=== PATIENT | male | born 1935 | race Caucasian/White ===

== ENCOUNTER 2016-10-07 00:06 | Observation (INO) | payer MEDICARE ==
[2016-10-07] VITALS (16 sets, daily range): BP systolic 57–197; BP diastolic 41–99; PULSE 55–88; RESP 8–21; TEMP 97.5–98; O2SAT 92–100
[~2016-10-07] VITALS: Ht 182.9 cm; Wt 104.5 kg
[2016-10-07] MEDS ORDERED: SODIUM CHLOR 0.9% 1000 ML INJ 1,000 ML IV SCH (00:12)
[2016-10-07] MEDS ORDERED: NALOXONE HCL 2 MG/2 ML VIAL IV ONE (00:15)
[2016-10-07] MEDS ORDERED: SODIUM CHLORIDE 0.9% FLUSH 10 ML FLUSH IVF PRN (00:15)
[2016-10-07] MEDS ORDERED: FINA5TAB2 PO (00:21)
[2016-10-07] MEDS ORDERED: ATOR20TA15 PO (00:21)
[2016-10-07] MEDS ORDERED: VALS1TAB70 PO (00:21)
[2016-10-07] MEDS ORDERED: GABA300C5 PO (00:21)
[2016-10-07] MEDS ORDERED: TAMS0.4C4 PO (00:21)
[2016-10-07] MEDS ORDERED: HYDR25TA5 PO (00:21)
[2016-10-07] MEDS ORDERED: HYDR-3583 PO (00:21)
[2016-10-07 00:32] LABS: BLOOD GAS CARBOXYHEMOGLOBIN 0.9 % (0-4); BLOOD GAS HCO3 17 mmol/L (22-26); BLOOD GAS METHEMOGLOBIN 0.2 % (0-2); BLOOD GAS O2 HGB SATURATION 97 % (90-100); BLOOD GAS OXYGEN CONTENT 13.6 Vol % (12.0-20.0); BLOOD GAS PCO2 31 mmHg (38-42); BLOOD GAS PO2 106 mmHG (61-120); BLOOD GAS TOTAL HGB 9.8 G/DL (12.0-16.0); CRITICAL VALUE NO; TEMP CORR TO 98.6
[2016-10-07 00:33] LABS: DRAW SITE LT RADIAL; LITER FLOW 2 L/M; NUMBER OF ARTERIAL PUNCTURES 1; OXYGEN DEVICE NASAL CANNULA; STAT YES; ULNAR PULSE PRESENT
[2016-10-07 00:41] LABS: AUTOMATED NEUTROPHIL # 4.1 TH/MM3 (1.8-7.7); BASOPHIL % 0.4 % (0.0-2.0); EOSINOPHIL # 0.2 TH/MM3 (0-0.4); EOSINOPHIL % 1.9 % (0.0-4.0); HEMATOCRIT 32.3 % (39.0-51.0); HEMO FLAGS DIFF FINAL; LYMPH % 38.4 % (9.0-44.0); LYMPHOCYTE # 3.3 TH/MM3 (1.0-4.8); MEAN CELL VOLUME 89.8 FL (80.0-100.0); MEAN CORPUSCULAR HEMOGLOBIN 30.7 PG (27.0-34.0); MEAN CORPUSCULAR HGB CONC 34.2 % (32.0-36.0); MONO % 11.7 % (0.0-8.0); NEUT % 47.6 % (16.0-70.0); PLATELET COUNT 200 TH/MM3 (150-450); RED CELL DISTRIBUTION WIDTH 13.8 % (11.6-17.2); WHITE BLOOD COUNT 8.6 TH/MM3 (4.0-11.0)
[2016-10-07 00:54] LABS: AMPHETAMINE, URINE NEG (NEG); BARBITURATES, URINE NEG (NEG); COCAINE, URINE NEG (NEG)
--- NOTE | 2016-10-07 01:12 | RADRPT ---
EXAM DATE/TIME: 10/07/2016 00:32 [facility] COMPARISON: No previous studies available for comparison. INDICATIONS : Syncopal episode. MEDICAL HISTORY : None. SURGICAL HISTORY : None. ENCOUNTER: Initial ACUITY: 1 day PAIN SCORE: Non-responsive. LOCATION: Bilateral chest FINDINGS: A single view of the chest demonstrates the lungs to be symmetrically aerated without evidence of mas s, infiltrate or effusion. Mild dependent atelectasis. The cardiomediastinal contours are unremarkabl e. Osseous structures are intact. CONCLUSION: 1. No acute findings. Minimal dependent atelectasis. Jarrett Jolly MD on October 07, 2016 at 1:10 Board Certified Radiologist. This report was verified electronically.
[2016-10-07 01:18] LABS: ACETAMINOPHEN 4.2 MCG/ML (10.0-30.0); ALKALINE PHOSPHATASE 50 U/L (45-117); ALT (GPT) 27 U/L (12-78); ANION GAP 12 MEQ/L (5-15); AST (GOT) 41 U/L (15-37); BLOOD UREA NITROGEN 35 MG/DL (7-18); CHLORIDE 107 MEQ/L (98-107); CREATINE KINASE 442 U/L (39-308); GLOMERULAR FILTRATION RATE 32 ML/MIN (>89); POTASSIUM 4.3 MEQ/L (3.5-5.1); SODIUM (NA) 138 MEQ/L (136-145); TOTAL BILIRUBIN ADULT 0.2 MG/DL (0.2-1.0)
[2016-10-07 01:30] LABS: CKMB 6.5 NG/ML (0.5-3.6)
--- NOTE | 2016-10-07 01:44 | PD ---
HPI Chief Complaint: Altered Mental Status Time Seen by Provider: 00:12 Travel History International Travel<30 days: No Contact w/Intl Traveler<30days: No Traveled to known affect area: No History of Present Illness HPI The patient's 81 years old. He arrives by EMS. He was sitting on his couch watching TV with the family. They left for a minute and when they returned he had fallen to the floor. EMS was activated. EMS reports one chest compression was performed at the time of their arrival and the patient yelled out in pain. EMS reports the patient had a normal pulse on scene and normal respirations. Blood glucose was 112 heart rate was in the 60s and the blood pressure is 105/ 67. The oxygen saturation was 100% on nonrebreather. The blood glucose was 112. They report the patient had alcohol on breath and Lortab on scene. In the ER the patient is very sleepy. He was given Narcan shortly following arrival which seemed to have no effect. His blood pressure dropped to about 65/ 45 and IV fluids were started and the patient was placed in a Trendelenburg position. History limited to that provided by EMS given altered mentation upon arrival. He does have a history of stroke from approximately 6 months prior. He also has high cholesterol and hypertension. [facility] Past Medical History High Cholesterol: Yes Cerebrovascular Accident: Yes (march 2016) Diminished Hearing: No Hypertension: Yes Influenza Vaccination: No Social History Alcohol Use: Yes Tobacco Use: No Substance Use: No Allergies-Medications (Allergen,Severity, Reaction): Coded Allergies: No Known Allergies (Unverified , 10/07/16) Reported Meds & Prescriptions Reported Meds & Active Scripts Active Reported Valsartan 320 Mg Tab 320 Mg PO DAILY Atorvastatin (Atorvastatin Calcium) 20 Mg Tab 20 Mg PO DAILY Gabapentin 300 Mg Cap 300 Mg PO TID Finasteride 5 Mg Tab 5 Mg PO DAILY Do not crush. Hydrocodone-Acetaminophen 10-325 mg Tab 1 Tab PO BID PRN Tamsulosin (Tamsulosin HCl) 0.4 Mg Cap 0.4 Mg PO HS Hydrochlorothiazide 25 Mg Tab 25 Mg PO DAILY Review of Systems ROS Limitations: Clinical Condition, Altered Mental Status Except as stated in HPI: all other systems reviewed are Neg Physical Exam Narrative GENERAL: 81-year-old male well-nourished well-developed occasionally groans in response to noxious stimulus SKIN: Focused skin assessment warm/dry. HEAD: Atraumatic. Normocephalic. EYES: Pupils pinpoint with conjugate gaze. ENT: No nasal bleeding or discharge. Mucous membranes pink and moist. NECK: Trachea midline. No JVD. CARDIOVASCULAR: Regular rate and rhythm. No murmur appreciated. RESPIRATORY: No accessory muscle use. Clear to auscultation. Breath sounds equal bilaterally. GASTROINTESTINAL: Abdomen soft, non-tender, nondistended. Hepatic and splenic margins not palpable. MUSCULOSKELETAL: No obvious deformities. No clubbing. No cyanosis. No edema. NEUROLOGICAL: No focal neurologic deficit. PSYCHIATRIC: Unable to assess Data Data Last Documented VS Vital Signs Date Time Temp Pulse Resp B/P Pulse Ox O2 Delivery O2 Flow Rate FiO2 10/07/16 05:12 55 16 124/58 98 Room Air 10/07/16 01:39 2 10/07/16 00:12 97.5 VS reviewed Orders Electrocardiogram (10/07/16 00:12) Complete Blood Count With Diff (10/07/16 00:12) Comprehensive Metabolic Panel (10/07/16 00:12) Creatine Kinase (Cpk) (10/07/16 00:12) Troponin I (10/07/16 00:12) Lactic Acid Sepsis Protocol (10/07/16 00:12) Arterial Blood Gas (Abg) (10/07/16 00:12) Chest, Single Ap (10/07/16 00:12) Blood Glucose (10/07/16 00:12) Ecg Monitoring (10/07/16 00:12) Iv Access Insert/Monitor (10/07/16 00:12) Cath For Specimen (10/07/16 00:12) Oximetry (10/07/16 00:12) Oxygen Administration (10/07/16 00:12) Naloxone Inj (Narcan Inj) (10/07/16 00:15) Sodium Chloride 0.9% Flush (Ns Flush) (10/07/16 00:15) Sodium Chlor 0.9% 1000 Ml Inj (Ns 1000 M (10/07/16 00:12) Drug Screen, Random Urine (10/07/16 00:12) Alcohol (Ethanol) (10/07/16 00:12) Salicylates (Aspirin) (10/07/16 00:12) Tylenol (Acetaminophen) (10/07/16 00:12) CKMB (10/07/16 00:20) CKMB% (10/07/16 00:20) Naloxone Inj (Narcan Inj) (10/07/16 01:45) Sodium Chlor 0.9% 1000 Ml Inj (Ns 1000 M (10/07/16 01:45) Ct Brain W/O Iv Contrast(Rout) (10/07/16 01:54) Place In Observation (10/07/16 ) Vital Signs (Adult) Q4H (10/07/16 05:16) Deck Scaler / Telemetry RANDY.Q8H (10/07/16 05:16) Intake + Output RANDY.QSHIFT (10/07/16 05:16) Neuro Checks Q4H (10/07/16 05:16) Diet Heart Healthy (10/07/16 Breakfast) Sodium Chloride 0.9% Flush (Ns Flush) (10/07/16 05:30) Sodium Chloride 0.9% Flush (Ns Flush) (10/07/16 09:00) Echo 2d Comp W/Dopp(Routine) (10/07/16 ) Holter Monitor Recording (10/07/16 ) Eeg Study (10/07/16 ) Us Carotid Arteries Comp Bilat (10/07/16 ) Urinalysis - C+S If Indicated (10/07/16 05:20) Admit Order (Ed Use Only) (10/07/16 05:49) Labs Laboratory Tests Test 10/07/16 10/07/16 00:20 03:19 White Blood Count 8.6 TH/MM3 Red Blood Count 3.60 MIL/MM3 Hemoglobin 11.1 GM/DL Hematocrit 32.3 % Mean Corpuscular Volume 89.8 FL Mean Corpuscular Hemoglobin 30.7 PG Mean Corpuscular Hemoglobin 34.2 % Concent Red Cell Distribution Width 13.8 % Platelet Count 200 TH/MM3 Mean Platelet Volume 10.7 FL Neutrophils (%) (Auto) 47.6 % Lymphocytes (%) (Auto) 38.4 % Monocytes (%) (Auto) 11.7 % Eosinophils (%) (Auto) 1.9 % Basophils (%) (Auto) 0.4 % Neutrophils # (Auto) 4.1 TH/MM3 Lymphocytes # (Auto) 3.3 TH/MM3 Monocytes # (Auto) 1.0 TH/MM3 Eosinophils # (Auto) 0.2 TH/MM3 Basophils # (Auto) 0.0 TH/MM3 CBC Comment DIFF FINAL Differential Comment Urine Color LIGHT-YELLOW Urine Turbidity CLEAR Urine pH 5.0 Urine Specific [place] 1.010 Urine Protein NEG mg/dL Urine Glucose (UA) NEG mg/dL Urine Ketones NEG mg/dL Urine Occult Blood NEG Urine Nitrite NEG Urine Bilirubin NEG Urine Urobilinogen LESS THAN 2.0 MG/DL Urine Leukocyte Esterase NEG Urine RBC 1 /hpf Urine WBC 1 /hpf Urine Squamous Epithelial <1 /hpf Cells Urine Bacteria RARE /hpf Urine Mucus FEW /lpf Microscopic Urinalysis Comment CULT NOT INDICATED Blood Gas Puncture Site LT RADIAL Blood Gas Patient Temperature 98.6 Blood Gas HCO3 17 mmol/L Blood Gas Base Excess -8.0 mmol/L Blood Gas Oxygen Saturation 97 % Arterial Blood pH 7.35 Arterial Blood Partial 31 mmHg Pressure CO2 Arterial Blood Partial 106 mmHG Pressure O2 Arterial Blood Oxygen Content 13.6 Vol % Arterial Blood 0.9 % Carboxyhemoglobin Arterial Blood Methemoglobin 0.2 % Blood Gas Hemoglobin 9.8 G/DL Oxygen Delivery Device NASAL CANNULA Blood Gas Liter Flow 2 L/M Sodium Level 138 MEQ/L Potassium Level 4.3 MEQ/L Chloride Level 107 MEQ/L Carbon Dioxide Level 19.0 MEQ/L Anion Gap 12 MEQ/L Blood Urea Nitrogen 35 MG/DL Creatinine 2.03 MG/DL Estimat Glomerular Filtration 32 ML/MIN Rate Random Glucose 92 MG/DL Lactic Acid Level 3.1 mmol/L 2.6 mmol/L Calcium Level 8.5 MG/DL Total Bilirubin 0.2 MG/DL Aspartate Amino Transf 41 U/L (AST/SGOT) Alanine Aminotransferase 27 U/L (ALT/SGPT) Alkaline Phosphatase 50 U/L Total Creatine Kinase 442 U/L Creatine Kinase MB 6.5 NG/ML Creatine Kinase MB % 1.5 % Troponin I LESS THAN 0.02 NG/ML Total Protein 6.4 GM/DL Albumin 3.5 GM/DL Salicylates Level LESS THAN 1.7 MG/DL Urine Opiates Screen POS Acetaminophen Level 4.2 MCG/ML Urine Barbiturates Screen NEG Urine Amphetamines Screen NEG Urine Benzodiazepines Screen NEG Urine Cocaine Screen NEG Urine Cannabinoids Screen NEG Ethyl Alcohol Level 112 MG/DL [facility] Medical Decision Making Medical Screen Exam Complete: Yes Emergency Medical Condition: Yes Medical Record Reviewed: Yes Differential Diagnosis Syncope, arrhythmia, intracranial disease, electrolyte imbalance, anemia, etoh, polypharmacy Narrative Course CBC & BMP Diagram 10/07/16 00:20 7.35/ BE -18.0 abg pO2 106 on 2L NC EtOH 112 Urine toxicology opiates APAP 4.2 Salicylates < 1.7 EKst degree av block, st changes no considered ischemic, normal axis Last [address] 10/07/16 0154 Signed Impressions: Service Date/Time: September 04:18 - CONCLUSION: 1. Remote small infarct in the right parieto-occipital region. No acute intracranial abnormalities. Jarrett Jolly MD Chest X-Ray 10/07/16 0012 Signed Impressions: Service Date/Time: September 00:32 - CONCLUSION: 1. No acute findings. Minimal dependent atelectasis. Jarrett Jolly MD Carotid Artery Ultrasound 10/07/16 0000 Signed Impressions: Service Date/Time: September 08:25 - CONCLUSION: 1. Bilateral calcified atherosclerotic plaque which is more abundant on the right. A 50-69% % stenosis of the right ICA with less than 50%% stenosis of the left ICA. 2. Antegrade flow involving both vertebral arteries. 3. Irregular heartbeat noted. Jovani Diaz Jr., MD Initially patient minimally responsive to noxious stimulus. Intact gag reflex. Careful monitoring initially with volume resuscitation. ABG ordered. Pt was initially hypotensive in ER with BP about 70/50 and HR of 50s. IVF boluses x 2L. BP gradually increased to about 100-110/50-60 during ER course. Pt 's mentation gradually improved. He re-iterated no specific medical complaint upon reassessment x 3 prior to admission. Family and patient unaware of prior hx kidney disease. No similar prior episode. Admission for further monitoring and diagnostic evaluation. D/w Dr Zazueta. Critical Care Narrative Aggregate critical care time was 35 minutes. Time to perform other separately billable procedures was not included in the critical care time. My time did not include minutes spent treating any other patients simultaneously or on activities that did not directly contribute to the patient's treatment. The services I provided to this patient were to treat and/or prevent clinically significant deterioration that could result in: Cardiopulmonary arrest, multiorgan injury disability, I provided critical care services requiring my management, as noted below: Chart data review, documentation time, medication orders and management, vital sign assessments/reviewing monitor data, ordering and reviewing lab tests, ordering and interpreting/reviewing x-rays and diagnostic studies, care of the patient and discussion of the patient with the admitting physicians. Diagnosis Primary Impression: LOC (loss of consciousness) Additional Impressions: Hypotension Qualified Code: I95.9 - Hypotension, unspecified hypotension type Alcohol intoxication Qualified Code: F10.129 - Alcohol intoxication, with unspecified complication Altered mental status Qualified Code: R41.82 - Altered mental status, unspecified altered mental status type Admitting Information Admitting Physician Requests: it Jean Morgan MD Oct 07, 2016 01:44
[2016-10-07] MEDS ORDERED: NALOXONE HCL 2 MG/2 ML VIAL IV PUSH ONE (01:45)
[2016-10-07] MEDS ORDERED: SODIUM CHLOR 0.9% 1000 ML INJ 1,000 ML IV ONE (01:45)
[2016-10-07 02:30] LABS: LACTIC ACID GHOST NOT REPORTABLE
--- NOTE | 2016-10-07 04:58 | RADRPT ---
EXAM DATE/TIME: 10/07/2016 04:18 [facility] COMPARISON: No previous studies available for comparison. INDICATIONS : Altered mental status today. RADIATION DOSE: 56.35 CTDIvol (mGy) MEDICAL HISTORY : Stroke. Hypertension. SURGICAL HISTORY : None. ENCOUNTER: Initial ACUITY: 1 day PAIN SCALE: 0/10 LOCATION: Bilateral head TECHNIQUE: Multiple contiguous axial images were obtained of the head. Using automated exposure control and adj ustment of the mA and/or kV according to patient size, radiation dose was kept as low as reasonably a chievable to obtain optimal diagnostic quality images. FINDINGS: There is a remote infarct in the right parieto-occipital region. No acute mass, hemorrhage or midline shift. No recent infarct identified. No hydrocephalus. CONCLUSION: 1. Remote small infarct in the right parieto-occipital region. No acute intracranial abnormalities. Jarrett Jolly MD on October 07, 2016 at 4:54 Board Certified Radiologist. This report was verified electronically.
[2016-10-07] MEDS ORDERED: SODIUM CHLORIDE 0.9% FLUSH 10 ML FLUSH IV FLUSH PRN (05:30)
[2016-10-07 05:45] LABS: BACTERIA, URINE RARE /hpf; BLOOD, URINE NEG (NEG); COMMENT (UR) CULT NOT INDICATED; CULTURE IF INDICATED CULT NOT INDICATED; GLUCOSE,URINE NEG (NEG); KETONE, URINE NEG (NEG); MUCUS URINE FEW /lpf (OCC); NITRITE,URINE NEG (NEG); SQUAMOUS EPITHELIAL CELL URINE <1 /hpf (0-5); URINE COLOR LIGHT-YELLOW (YELLW/STRAW)
[2016-10-07] MEDS: SODIUM CHLORIDE 0.9% FLUSH 10 ML FLUSH IV FLUSH SCH ×2 (08:02→21:26)
[2016-10-07] MEDS: SODIUM CHLOR 0.9% 1000 ML INJ 1,000 ML IV SCH ×2 (08:02→21:53)
[2016-10-07 08:08] LABS: AUTOMATED NEUTROPHIL # 4.9 TH/MM3 (1.8-7.7); BASOPHIL % 0.4 % (0.0-2.0); EOSINOPHIL # 0.2 TH/MM3 (0-0.4); EOSINOPHIL % 2.2 % (0.0-4.0); HEMATOCRIT 32.6 % (39.0-51.0); HEMO FLAGS DIFF FINAL; LYMPH % 23.9 % (9.0-44.0); LYMPHOCYTE # 1.9 TH/MM3 (1.0-4.8); MEAN CORPUSCULAR HEMOGLOBIN 30.7 PG (27.0-34.0); MEAN CORPUSCULAR HGB CONC 34.8 % (32.0-36.0); MONO % 10.6 % (0.0-8.0); NEUT % 62.9 % (16.0-70.0); PLATELET COUNT 159 TH/MM3 (150-450); RED CELL DISTRIBUTION WIDTH 13.8 % (11.6-17.2); WHITE BLOOD COUNT 7.8 TH/MM3 (4.0-11.0)
[2016-10-07 08:28] LABS: ANION GAP 7 MEQ/L (5-15); AST (GOT) 26 U/L (15-37); BICARBONATE 20.8 MEQ/L (21.0-32.0); BLOOD UREA NITROGEN 32 MG/DL (7-18); CHLORIDE 112 MEQ/L (98-107); GLOMERULAR FILTRATION RATE 38 ML/MIN (>89); POTASSIUM 4.5 MEQ/L (3.5-5.1); SODIUM (NA) 140 MEQ/L (136-145)
[2016-10-07 08:32] LABS: ALKALINE PHOSPHATASE 50 U/L (45-117); ALT (GPT) 27 U/L (12-78); CREATINE KINASE 325 U/L (39-308); TOTAL BILIRUBIN ADULT 0.3 MG/DL (0.2-1.0)
[2016-10-07 08:47] LABS: CKMB 6.1 NG/ML (0.5-3.6)
[2016-10-07] MEDS ORDERED: ACETAMINOPHEN/HYDROcodone 325 MG/10 MG TAB PO PRN (09:45)
--- NOTE | 2016-10-07 10:00 | RADRPT ---
EXAM DATE/TIME: 10/07/2016 08:25 [facility] COMPARISON: No previous studies available for comparison. INDICATIONS : Syncope. MEDICAL HISTORY : Hypercholesterolemia. Hypertension. Cerebrovascular accident. SURGICAL HISTORY : Bilateral shoulder surgery. Right hip replacement. Left knee and elbow surgery. ENCOUNTER: Initial ACUITY: 1 day PAIN SCORE: 0/10 LOCATION: Bilateral neck PEAK SYSTOLIC VELOCITIES (cm/sec): ICA/CCA RATIO: Right: 1.7 Left: 1.1 ICA: Right: 158 Left: 110 CCA: Right: 95 Left: 102 ECA: Right: 130 Left: 122 VERTEBRAL: Right: 89 antegrade Left: 88 antegrade Elevated flow velocities and ICA/CCA ratios have been found to correlate with increased degrees of vessel stenosis, calculated as percentage of diameter relative to a normal segment of distal ICA/CCA FINDINGS: RIGHT CAROTID: Scattered calcified plaque throughout the common carotid artery, carotid bulb, and proximal ICA. Grubbs scale analysis suggests an approximate 50% stenosis. Spectral evaluation shows some spectral broadeni ng. Brisk upstroke and antegrade diastolic flow remains. LEFT CAROTID: Scattered calcified plaque throughout the common carotid artery, carotid bulb, and proximal ICA. Grubbs scale analysis suggests a less than 50% stenosis. Spectral evaluation shows some spectral broadening. Brisk upstroke and antegrade diastolic flow remains. VERTEBRAL ARTERIES: Antegrade flow is seen in both vertebral arteries. MISCELLANEOUS: There is an irregular heartbeat noted. CONCLUSION: 1. Bilateral calcified atherosclerotic plaque which is more abundant on the right. A 50-69% stenosis of the right ICA with less than 50% stenosis of the left ICA. 2. Antegrade flow involving both vertebral arteries. 3. Irregular heartbeat noted. Jovani Diaz Jr., MD on October 07, 2016 at 9:54 Board Certified Radiologist. This report was verified electronically.
[2016-10-07] MEDS: ATORVASTATIN 20 MG TAB PO SCH (10:39)
[2016-10-07] MEDS: FINASTERIDE 5 MG TAB PO SCH (10:40)
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
--- NOTE | 2016-10-07 11:49 | EC ---
Study Study Date:10/07/2016 STUDY CONCLUSIONS SUMMARY - Left ventricle: The cavity size was normal. Wall thickness was normal. Systolic function was normal. The estimated ejection fraction was in the range of 55% to 60%. Wall motion was normal; there were no regional wall motion abnormalities. - Aortic valve: Valve area: 2.25cm^2 (Vmax). If LV function is below 40, please consider prescribing an ACEI or ARB or document rationale for non-use. PROCEDURE DATA STUDY STATUS: Elective. Procedure: Transthoracic echocardiography. Image quality was good. Scanning was performed from the parasternal, apical, and subcostal acoustic windows. Study completion: The patient tolerated the procedure well. Transthoracic echocardiography. M-mode, complete 2D, complete spectral Doppler, and color Doppler. Height: Height: 70in. Weight: Weight: 174.6lb. Body mass index: BMI: 25.1kg/m^2. Body surface area: BSA: 1.97m^2. Patient status: Inpatient. CARDIAC ANATOMY LEFT VENTRICLE: The cavity size was normal. Wall thickness was normal. Systolic function was normal. The estimated ejection fraction was in the range of 55% to 60%. Wall motion was normal; there were no regional wall motion abnormalities. AORTIC VALVE: Trileaflet; normal thickness leaflets. Doppler: Transvalvular velocity was within the normal range. There was no stenosis. No regurgitation. Valve area: 2.25cm^2 (Vmax). Indexed valve area: 1.14cm^2/m^2 (Vmax). AORTA: Aortic root: The aortic root was normal in size. MITRAL VALVE: Structurally normal valve. Doppler: Transvalvular velocity was within the normal range. There was no evidence for stenosis. No regurgitation. Valve area by pressure half-time: 5.37cm^2. Indexed valve area by pressure half-time: 2.73cm^2/m^2. Mean gradient: 3mm Hg (D). Peak gradient: 6mm Hg (D). LEFT ATRIUM: The atrium was normal in size. RIGHT VENTRICLE: The cavity size was normal. Wall thickness was normal. PULMONIC VALVE: Doppler: Transvalvular velocity was within the normal range. There was no evidence for stenosis. No regurgitation. TRICUSPID VALVE: Structurally normal valve. Doppler: Transvalvular velocity was within the normal range. No regurgitation. Peak gradient: 22mm Hg (D). PULMONARY ARTERY: The main pulmonary artery was normal-sized. Systolic pressure was within the normal range. RIGHT ATRIUM: The atrium was normal in size. PERICARDIUM: There was no pericardial effusion. SYSTEMIC VEINS: Inferior vena cava: The vessel was normal in size. Patient weight: 174.6lb _Ejection fraction:_ 65-75% _Fractional shortening:_ 32% up to 5Kg 5-11.5Kg 11.6-22.9Kg 23-45Kg 45-57Kg Aortic Root 7-13 <17 13-22 17-27 17-27 LA diam 6-13 <23 24-38 33-47 37-40 RVID 10-17 7-15 7-15 7-18 8-17 LVIDd 12-22 <32 24-38 33-47 37-40 LVPW 2-4 3-6 5-7 6-8 7-8 IVS 2-4 3-6 5-7 6-8 7-8 BASIC MEASUREMENTS ADULT NORMAL Left ventricle LV internal dimension, ED, chordal 46 mm 43-52 level, PLAX LV internal dimension, ES, chordal 30 mm 23-38 level, PLAX Fractional shortening, chordal level, 35 % >29 PLAX LV posterior wall thickness, ED 11.2 mm IVS/LVPW ratio, ED 1.02 <1.3 Volume, ED, MOD, 1-plane 63 ml Volume, ES, MOD, 1-plane 19 ml Ejection fraction, MOD, 1-plane 70 % Stroke volume, MOD, 1-plane 44 ml Volume index, ED, MOD, 1-plane 32 ml/m^2 Volume index, ES, MOD, 1-plane 10 ml/m^2 Stroke index, MOD, 1-plane 22.3 ml/m^2 Ventricular septum Septal thickness, ED 11.4 mm Aortic valve Leaflet separation 20 mm 15-26 Aorta Root diameter, ED 28 mm Left atrium Anterior-posterior dimension 40 mm Anterior-posterior dimension index 2.03 cm/m^2 <2.2 BASIC MEASUREMENTS ADULT NORMAL Aortic valve Leaflet separation 20 mm 15-26 Aorta Root diameter, ED 34 mm 20-37 DOPPLER MEASUREMENTS ADULT NORMAL Aortic valve Peak velocity, S 155 cm/s VTI, S 32 cm Valve area, Vmax 2.25 cm^2 Valve area index, Vmax 1.14 cm^2/m^2 Mitral valve Peak E-wave velocity 95 cm/s Peak A-wave velocity 95 cm/s Mean velocity, D 84.1 cm/s Pressure half-time 41 ms Mean gradient, D 3 mm Hg Peak gradient, D 6 mm Hg Peak E/A ratio 1 Valve area, pressure half-time 5.37 cm^2 Valve area index, pressure half-time 2.73 cm^2/m^2 Tricuspid valve Peak gradient, D 22 mm Hg Maximal inflow velocity 235 cm/s Systemic veins Estimated CVP 10 mm Hg Pulmonic valve Peak velocity, S 121 cm/s LEGEND: Mean values are shown as u=mean value. Asterisk (*) millan values outside specified normal range. Prepared and signed by Shiraz Lincoln [id number]
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
[2016-10-07] MEDS ORDERED: GABAPENTIN 300 MG CAP PO SCH (13:00)
--- NOTE | 2016-10-07 13:12 | EKG ---
Date Performed: 10/07/2016 Time Performed: 00:09:34 PTAGE: 81 years EKG: Sinus rhythm WITH FIRST DEGREE AV BLOCK ST ELEVATION, PROBABLY EARLY REPOLARIZATION ABNORMAL ECG INTERPRETATION B ASED ON A DEFAULT AGE OF 40 YEARS NO PREVIOUS TRACING DOCTOR: Senthil Lang Interpretating Date/Time 10/07/2016 13:10:14
[2016-10-07] MEDS ORDERED: ENOXAPARIN SODIUM 30 MG/0.3 ML SYRINGE SQ SCH (16:00)
[2016-10-07] MEDS ORDERED: ENALAPRILAT 1.25 MG/ML VIAL IV PUSH PRN (18:00)
[2016-10-07] MEDS: GABAPENTIN 300 MG CAP PO SCH (21:26)
--- NOTE | 2016-10-07 22:51 | MG ---
cc: CHAR CORRIGAN Lab No: [id number] Date: 10/07/16 Age: Sex: M Race: An 81-year-old man. Hyperventilation not performed. Old right stroke. Lipitor Gabapentin Diffuse alpha waves and beta waves are seen. Recording overall is synchronous and symmetric. An 8 Hz 40-50 microvolt posterior symmetric rhythm is noted. No hemisphere asymmetry is noted. Diffuse 7 Hz slowing is occasionally seen with drowsiness. No epileptiform or seizure activity seen. Photic stimulation was performed without significant posterior driving. The patient fell asleep and snored but did not reach stage II sleep. IMPRESSION Normal awake and sleep electroencephalogram. No evidence for a focal or diffuse abnormality. MD HE [place]/ /10:00 PM /10:45 PM
[2016-10-07] MEDS ORDERED: ACETAMINOPHEN 325 MG TAB PO ONE (23:45)
[2016-10-07] MEDS ORDERED: diphenhydrAMINE HCL 25 MG CAP PO ONE (23:45)
[2016-10-08 02:30] VITALS: BP 133/68; PULSE 68; RESP 18; TEMP 97.8; O2SAT 97
[2016-10-08 04:00] VITALS: BP 121/64; PULSE 78; RESP 18; TEMP 98.7; O2SAT 94
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
[2016-10-08] MEDS ORDERED: TAMSULOSIN HCL 0.4 MG CAP PO ONE (07:15)
[2016-10-08 07:20] VITALS: PULSE 61
[2016-10-08] MEDS: SODIUM CHLORIDE 0.9% FLUSH 10 ML FLUSH IV FLUSH SCH (08:02)
[2016-10-08] MEDS: FINASTERIDE 5 MG TAB PO SCH (08:02)
[2016-10-08] MEDS: GABAPENTIN 300 MG CAP PO SCH (08:02)
[2016-10-08] MEDS: ATORVASTATIN 20 MG TAB PO SCH (08:02)
[2016-10-08] MEDS: SODIUM CHLOR 0.9% 1000 ML INJ 1,000 ML IV SCH (08:03)
[2016-10-08 08:08] VITALS: BP 175/79; PULSE 53; RESP 18; TEMP 96.7; O2SAT 92
[2016-10-08 08:38] LABS: BICARBONATE 21.5 MEQ/L (21.0-32.0); MAGNESIUM 2.1 MG/DL (1.5-2.5); POTASSIUM 3.9 MEQ/L (3.5-5.1)
[2016-10-08] MEDS ORDERED: ASPIRIN 325 MG TAB PO SCH (09:00)
[2016-10-08 09:07] VITALS: BP_SYST 174; BP_SYST 178; BP_DIAS 75; BP_DIAS 76; BP_DIAS 80; PULSE 72
--- NOTE | 2016-10-08 09:10 | HHI.PR ---
Subjective Remarks Follow-up for syncope. The patient is doing well today. He has no acute complaints. He would like to go home if possible. He denies any chest pain, shortness breath, lightheadedness, dizziness. Objective Vitals Vital Signs Date Time Temp Pulse Resp B/P Pulse Ox O2 Delivery O2 Flow Rate FiO2 10/08/16 08:08 96.7 53 18 175/79 92 10/08/16 04:00 98.7 78 18 121/64 94 10/08/16 02:30 97.8 68 18 133/68 97 10/07/16 22:50 97.8 70 21 175/78 93 10/07/16 21:52 74 20 178/94 95 Room Air 10/07/16 21:42 83 18 197/99 95 Room Air 10/07/16 19:00 61 18 175/88 99 Room Air 10/07/16 15:00 98.0 72 18 140/78 98 Nasal Cannula 2 10/07/16 13:00 97.8 68 18 133/76 98 Room Air 2 10/07/16 10:41 97.8 88 17 131/87 99 Nasal Cannula 2 I/O 10/07/16 10/07/16 10/07/16 10/08/16 10/08/16 10/08/16 07:00 15:00 23:00 07:00 15:00 23:00 Intake Total 400 ml 240 ml Output Total 2600 ml 700 ml Balance -2200 ml -700 ml 240 ml Intake Oral 400 ml 240 ml Output Urine Total 2600 ml 700 ml # Voids 6 1 # Bowel Movements 1 Result Diagram: 10/07/16 0730 10/08/16 0737 Imaging Last Impressions Head CT 10/07/16 0154 Signed Impressions: Service Date/Time: September 04:18 - CONCLUSION: 1. Remote small infarct in the right parieto-occipital region. No acute intracranial abnormalities. Jarrett Jolly MD Chest X-Ray 10/07/16 0012 Signed Impressions: Service Date/Time: September 00:32 - CONCLUSION: 1. No acute findings. Minimal dependent atelectasis. Jarrett Jolly MD Carotid Artery Ultrasound 10/07/16 0000 Signed Impressions: Service Date/Time: Thursday, October 07, 2016 08:25 - CONCLUSION: 1. Bilateral calcified atherosclerotic plaque which is more abundant on the right. A 50-69% % stenosis of the right ICA with less than 50%% stenosis of the left ICA. 2. Antegrade flow involving both vertebral arteries. 3. Irregular heartbeat noted. Jovani Diaz Jr., MD Objective Remarks GENERAL: Well-developed well-nourished. In no acute distress. SKIN: Warm and dry. No lesions noted. HEENT: Normocephalic. Pupils equal and round. Mucous membranes pink and moist. CARDIOVASCULAR: Regular rate and rhythm. No murmur appreciated. RESPIRATORY: No accessory muscle use. Clear to auscultation. Breath sounds equal bilaterally. GASTROINTESTINAL: Abdomen soft, non-tender, nondistended. Bowel sounds x4. MUSCULOSKELETAL: Left knee with previous muscle flap. No clubbing or cyanosis. No edema. NEUROLOGICAL: Awake and alert. No focal neurological deficits. Moves upper and lower extremities spontaneously. Normal speech. PSYCHIATRIC: Appropriate mood and affect; insight and judgment normal. A/P Problem List: (1) LOC (loss of consciousness) ICD Code: R40.20 Status: Acute (2) Hypotension ICD Code: I95.9 Status: Acute Assessment and Plan 81-year-old male with a past medical history of CVA, BPH, HTN, HLD who presented after a syncopal episode Syncope: Unclear etiology. Presented with hypotension and dehydration. Reviewed: Echocardiogram with normal systolic function EF 55%. Non- orthostatic. Head CT with old infarct. Carotid ultrasound with bilateral plaques in the 50% range. EEG normal. -Monitor on telemetry. -IVF. -Adjust BP meds -Consulted patient's neurologist, order brain MRI -Consulted to vascular surgery for carotid disease, no intervention needed. Acute kidney injury: Creatinine 2.03->1.74->1.43 with IVF. No previous labs for comparison. Continue IVF for now. DC HCTZ. Hypotension with history of hypertension: BP labile with home medications held. Resume home tamsulosin. Consider resuming the valsartan at a decreased dose as tolerated. Monitor and adjust medications as needed. Lactic acidosis: Secondary to syncope. Lactic acid 3.1->0.9 with IVF. Resolved. History of CVA/HLD: Continue statin and aspirin. Neuropathy, chronic pain: Chronic. Continue gabapentin and [place]. BPH: Chronic. Continue finasteride. DVT prophylaxis: Really adjusted Lovenox. Written by Warren Francisco, acting as scribe for Dr. Hong on 10/08/16 at 09:09. All or portions of this note were transcribed by sena ONEILL. I, Dr. Dana Hong personally performed the history, physical exam, and medical decision making; and confirmed the accuracy of the information in the transcribed note. Authenticated by Dr. Dana Hong on 10/08/16 at 09:09. Discharge Planning Follow-up results of brain MRI. Adjust BP meds as needed. Brain MRI is unremarkable and BP is better controlled, discharge planning later today. Problem Qualifiers (1) Hypotension: Qualified Code: I95.9 - Hypotension, unspecified hypotension type Warren Francisco Oct 08, 2016 09:09 Dana Hong MD Oct 08, 2016 14:26
[2016-10-08] MEDS ORDERED: GADOBENATE DIM PF 529 MG/ML 20ML VIAL (for RAD MRI) IV ONE (09:17)
--- NOTE | 2016-10-08 10:05 | RADRPT ---
EXAM DATE/TIME: 10/08/2016 08:36 [place] COMPARISON: No previous studies available for comparison. INDICATIONS : Altered mental status. Syncope. CONTRAST: 20 cc Multihance (gadobenate) IV MEDICAL HISTORY : Stroke Hypertension. SURGICAL HISTORY : Total knee replacement, left. Bilateral shoulders/Rt hip replacement. ENCOUNTER: Initial ACUITY: 2 day PAIN SCORE: 0/10 LOCATION: Head TECHNIQUE: Multiplanar, multisequence MRI of the brain was performed both prior to and following the administration of paramagnetic contrast. FINDINGS: Marked periventricular white matter changes are noted. There is moderate central and cortical atroph y. There is no restricted diffusion evident. There are no extraaxial fluid collections appreciated. Posterior fossa is unremarkable. Basilar arteries are patent. Both vertebral arteries are patent. Portions of the orbits and paranasal sinuses visualized are unremarkable. CONCLUSION: 1. Central and cortical atrophy with marked periventricular white matter changes, otherwise negative . I do not see restricted diffusion to suggest an acute ischemic event. 2. There is no significant hemosiderin deposition present. Dom Saenz MD FACR on October 08, 2016 at 9:53 Board Certified Radiologist. This report was verified electronically.
[2016-10-08 10:58] VITALS: BP 160/72
[2016-10-08] MEDS ORDERED: ASPI325T PO (11:32)
[2016-10-08] MEDS ORDERED: DIOV80TA4 PO (11:35)
[2016-10-08] MEDS ORDERED: VALSARTAN 80 MG TAB PO SCH (12:00)
== END 2016-10-08 16:19 | disposition home or self-care (01) ==
LOC: NEPC 00:06 → NEDA 05:50 → NEDH 11:21 → NEPGCP 22:38
PROVIDERS: ADMIT Hospitalist; ATTEND Hospitalist
DX: R55 Syncope and collapse (principal); R41.82 Altered mental status, unspecified; I95.9 Hypotension, unspecified; I10 Essential (primary) hypertension; E78.5 Hyperlipidemia, unspecified; E86.0 Dehydration; E87.2 Acidosis; G62.9 Polyneuropathy, unspecified; N40.0 Benign prostatic hyperplasia without lower urinary tract symptoms; N17.9 Acute kidney failure, unspecified; G89.29 Other chronic pain; Z86.73 Personal history of transient ischemic attack (TIA), and cerebral infarction without residual deficits; Z79.82 Long term (current) use of aspirin; Z87.891 Personal history of nicotine dependence
CPT/HCPCS: 36600; 70450; 70553; 71010; 80048; 80053; 80307; 81001; 82550; 82552; 82805; 83605; 83735; 84484; 85025; 93005; 93306; 93880; 95819; 96361; 96374; 99291; A9577; G0378; J1650; J2310; J7030; P9612

== ENCOUNTER 2017-07-28 10:21 | Emergency (ER) | payer MEDICARE ==
[~2017-07-28] VITALS: Ht 175.3 cm; Wt 84.9 kg
[~2017-07-28 10:21] MED LIST: ASPI-183 PO; ATOR20TA15 PO; DIOV80TA4 PO; FINA5TAB2 PO; GABA300C5 PO; HYDR-3583 PO; TAMS0.4C4 PO
[2017-07-28 10:34] VITALS: BP 126/67; PULSE 88; RESP 18; TEMP 97.6; O2SAT 97
--- NOTE | 2017-07-28 10:43 | PD ---
HPI Chief Complaint: Edema Time Seen by Provider: 10:28 Travel History International Travel<30 days: No Contact w/Intl Traveler<30days: No Traveled to known affect area: No History of Present Illness HPI 82-year-old male presents for evaluation of left calf pain and swelling. Symptoms started yesterday. He describes it as an aching pain in his left calf which is constant, worse when walking. He called his primary care physician at [facility] who recommended that he come for evaluation to rule out DVT. Denies any history of DVT or PE in the past. He takes a full dose aspirin on a daily basis. Denies recent travel. He does report that he had a spinal nerve stimulator surgery one month ago. 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 Denies shortness of breath, fevers or chills, chest pain. No other complaints. PFSH Past Medical History High Cholesterol: Yes Cerebrovascular Accident: Yes (march 2016) Diminished Hearing: No Hypertension: Yes Influenza Vaccination: Yes Social History Alcohol Use: Yes ("SOCIALLY") Tobacco Use: No Substance Use: No Allergies-Medications (Allergen,Severity, Reaction): Coded Allergies: heparin (Verified Allergy, Unknown, CHEY, 07/28/17) Reported Meds & Prescriptions Reported Meds & Active Scripts Active Aspirin 325 Mg Tab 325 Mg PO DAILY Reported Valsartan 320 Mg Tab 320 Mg PO DAILY Amlodipine (Amlodipine Besylate) 2.5 Mg Tab 2.5 Mg PO BID Atorvastatin (Atorvastatin Calcium) 20 Mg Tab 20 Mg PO DAILY Finasteride 5 Mg Tab 5 Mg PO DAILY Do not crush. Hydrocodone-Acetaminophen 10-325 mg Tab 1 Tab PO BID PRN Tamsulosin (Tamsulosin HCl) 0.4 Mg Cap 0.4 Mg PO HS Review of Systems Except as stated in HPI: all other systems reviewed are Neg Physical Exam Narrative GENERAL: Well-nourished male in no acute distress SKIN: Warm and dry. Previous skin/muscle graft noted on the proximal left pretibial region. HEAD: Atraumatic. Normocephalic. EYES: Pupils equal and round. No scleral icterus. No injection or drainage. ENT: No nasal bleeding or discharge. Mucous membranes pink and moist. NECK: Trachea midline. No JVD. CARDIOVASCULAR: Regular rate and rhythm. No murmur appreciated. RESPIRATORY: No accessory muscle use. Clear to auscultation. Breath sounds equal bilaterally. GASTROINTESTINAL: Abdomen soft, non-tender, nondistended. Hepatic and splenic margins not palpable. MUSCULOSKELETAL: There is 1+ left lower extremity pitting edema. There is tenderness to palpation to the left calf. No tenderness to palpation of the thigh musculature. 2+ dorsalis pedis pulses. The Achilles tendon is intact and nontender. NEUROLOGICAL: Awake and alert. No obvious cranial nerve deficits. Motor grossly within normal limits. Normal speech. Data Data Last Documented VS Vital Signs Date Time Temp Pulse Resp B/P (MAP) Pulse Ox O2 Delivery O2 Flow Rate FiO2 07/28/17 10:34 97.6 88 18 126/67 (86) 97 Orders Orders Complete Blood Count With Diff (07/28/17 10:40) Basic Metabolic Panel (Bmp) (07/28/17 10:40) Act Partial Throm Time (Ptt) (07/28/17 10:40) Prothrombin Time / Inr (Pt) (07/28/17 10:40) Tibia/Fibula (Ap/Lat) (07/28/17 ) Us Leg Venous Doppler (07/28/17 10:40) Labs Laboratory Tests Test 07/28/17 10:35 White Blood Count 7.3 TH/MM3 Red Blood Count 4.21 MIL/MM3 Hemoglobin 12.6 GM/DL Hematocrit 38.7 % Mean Corpuscular Volume 92.0 FL Mean Corpuscular Hemoglobin 29.9 PG Mean Corpuscular Hemoglobin Concent 32.5 % Red Cell Distribution Width 12.9 % Platelet Count 202 TH/MM3 Mean Platelet Volume 10.0 FL Neutrophils (%) (Auto) 63.4 % Lymphocytes (%) (Auto) 24.1 % Monocytes (%) (Auto) 10.0 % Eosinophils (%) (Auto) 2.3 % Basophils (%) (Auto) 0.2 % Neutrophils # (Auto) 4.6 TH/MM3 Lymphocytes # (Auto) 1.8 TH/MM3 Monocytes # (Auto) 0.7 TH/MM3 Eosinophils # (Auto) 0.2 TH/MM3 Basophils # (Auto) 0.0 TH/MM3 CBC Comment DIFF FINAL Differential Comment Prothrombin Time 10.4 SEC Prothromb Time International Ratio 1.0 RATIO Activated Partial Thromboplast Time 25.8 SEC Blood Urea Nitrogen 36 MG/DL Creatinine 1.70 MG/DL Random Glucose 108 MG/DL Calcium Level 9.4 MG/DL Sodium Level 136 MEQ/L Potassium Level 4.1 MEQ/L Chloride Level 102 MEQ/L Carbon Dioxide Level 25.1 MEQ/L Anion Gap 9 MEQ/L Estimat Glomerular Filtration Rate 39 ML/MIN MDM Medical Decision Making Medical Screen Exam Complete: Yes Emergency Medical Condition: Yes Medical Record Reviewed: Yes Differential Diagnosis DVT, muscle cramp, compartment syndrome, muscle tear, osteomyelitis, tibial stress fracture Narrative Course 82-year-old male with pain and swelling his left calf since yesterday with no trauma. His primary care physician referred him here to rule out DVT. On examination he has 1+ pitting edema to lower extremity, tender to palpation in the left calf. X-ray imaging reveals no acute abnormalities, total knee arthroplasty and healed anterior tibial metaphyseal fracture noted. No acute fracture. CBC reveals a hemoglobin of 12.6 otherwise unremarkable. BMP reveals a GFR of 39 which appears to be his baseline. 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 The patient was notified of his results and given a copy of his ultrasound results to follow-up with his primary care physician with if his symptoms persist. He takes Lortab for pain which she can use for this pain. He is stable for discharge. Diagnosis Primary Impression: Pain of left calf Additional Impression: Mcmahon cyst Additional Instructions: Take your at home pain medication as needed. Perform gentle Stretches as discussed. Warm compresses to the affected area several times a day 10-15 minutes at a time. Follow-up with primary care physician and return for any emergent medical conditions. Med/Other Pt SpecificInfo: No Change to Meds Disposition: 01 DISCHARGE HOME Condition: Stable Dany Renner Jul 28, 2017 10:43
[2017-07-28] MEDS ORDERED: VALS1TAB70 PO (10:47)
[2017-07-28] MEDS ORDERED: AMLO2.5T PO (10:47)
[2017-07-28 10:58] LABS: AUTOMATED NEUTROPHIL # 4.6 TH/MM3 (1.8-7.7); BASOPHIL % 0.2 % (0.0-2.0); EOSINOPHIL # 0.2 TH/MM3 (0-0.4); EOSINOPHIL % 2.3 % (0.0-4.0); HEMATOCRIT 38.7 % (39.0-51.0); HEMOGLOBIN 12.6 GM/DL (13.0-17.0); LYMPH % 24.1 % (9.0-44.0); LYMPHOCYTE # 1.8 TH/MM3 (1.0-4.8); MEAN CORPUSCULAR HEMOGLOBIN 29.9 PG (27.0-34.0); MEAN CORPUSCULAR HGB CONC 32.5 % (32.0-36.0); MONOCYTE # 0.7 TH/MM3 (0-0.9); NEUT % 63.4 % (16.0-70.0); PLATELET COUNT 202 TH/MM3 (150-450); RED BLOOD COUNT 4.21 MIL/MM3 (4.50-5.90); RED CELL DISTRIBUTION WIDTH 12.9 % (11.6-17.2); WHITE BLOOD COUNT 7.3 TH/MM3 (4.0-11.0)
[2017-07-28 11:07] LABS: CALCIUM 9.4 MG/DL (8.5-10.1)
[2017-07-28 11:08] LABS: BICARBONATE 25.1 MEQ/L (21.0-32.0)
[2017-07-28 11:09] LABS: PROTHROMBIN TIME - PATIENT 10.4 SEC (9.8-11.6)
[2017-07-28 11:11] LABS: CREATININE 1.7 MG/DL (0.60-1.30)
--- NOTE | 2017-07-28 11:24 | RADRPT ---
EXAM DATE/TIME: 07/28/2017 11:04 [facility] COMPARISON: No previous studies available for comparison. INDICATIONS : Left calf swelling and pain, no known injury. MEDICAL HISTORY : Osteomyelitis. SURGICAL HISTORY : Total knee replacement, left. ENCOUNTER: Initial ACUITY: 2 days PAIN SCORE: 3/10 LOCATION: Left mid calf FINDINGS: Two view examination of the left tibia demonstrates evidence of a total knee arthroplasty. There is a old healed fracture involving the anterior tibial metadiaphyseal region. Their number rounded densit ies along the anteromedial humeral fracture of uncertain etiology but clearly benign. Bony mineraliz ation is normal. The soft tissue structures are intact. CONCLUSION: Total knee arthroplasty and healed anterior tibial metaphyseal fracture. No acute fracture is noted. Giovanny Zamora MD on July 28, 2017 at 11:22 Board Certified Radiologist. This report was verified electronically.
--- NOTE | 2017-07-28 11:46 | RADRPT ---
EXAM DATE/TIME: 07/28/2017 11:17 [facility] COMPARISON: No previous studies available for comparison. INDICATIONS : Left leg pain and swelling. MEDICAL HISTORY : Hypercholesterolemia. Hypertension. CVA. BPH. SURGICAL HISTORY : Bilateral shoulder surgery. Right hip replacement. Left knee and right elbow surgery. ENCOUNTER: Initial ACUITY: 1 day PAIN SCORE: 4/10 LOCATION: Left leg. TECHNIQUE: Venous ultrasound of the leg was performed from the inguinal ligament to the proximal calf. Real-musa e, color Doppler and spectral tracing, compression and augmentation techniques were used. FINDINGS: There is normal compressibility of the deep venous system from the inguinal region to the proximal ca lf. No echogenic clot is seen in the lumen of the common femoral, femoral, popliteal, and posterior tibial veins. There is a normal response of the venous system to proximal and distal augmentation an d respiration. CONCLUSION: Normal examination. There are multiple collections posterior to the knee I suspect a multiloculated B kiko's cyst Giovanny Zamora MD on July 28, 2017 at 11:43 Board Certified Radiologist. This report was verified electronically.
== END 2017-07-28 12:02 | disposition home or self-care (01) ==
LOC: PHEFT 10:21
DX: M79.662 Pain in left lower leg (principal); M71.22 Synovial cyst of popliteal space [Baker], left knee; Z96.652 Presence of left artificial knee joint; E78.00 Pure hypercholesterolemia, unspecified; I10 Essential (primary) hypertension
CPT/HCPCS: 73590; 80048; 85025; 85610; 85730; 93971; 99285